=== PATIENT | male | born 1975 | race Caucasian/White ===

== ENCOUNTER 2018-01-22 11:11 | Emergency (ER) | payer MEDICAID ==
[2018-01-22] MEDS: LORAZEPAM 2 MG INJ IV (11:35)
[2018-01-22] MEDS: SOD CHLORIDE 0.9% 1,000 ML IV (11:35)
[2018-01-22 11:42] LABS: ADD MAN DIFF? NO
[2018-01-22] MEDS: OXYMETAZOLINE 0.05% 15 ML NAS SPRAY NASAL (11:49)
[2018-01-22 11:55] LABS: BASOPHIL # 0.1 10^3/ul (0.0-0.1); EOSINOPHILS # 0.1 10^3/ul (0.0-0.5); IMMATURE GRANS #M 0 10^3/ul; IMMATURE GRANS % (M) 0 %; MEAN CORPUSCULAR HGB CONC 33.5 g/dl (32.0-37.0)
[2018-01-22 12:09] LABS: INR 0.93; PROTIME 12.5 Sec (11.9-14.9)
[2018-01-22 12:10] LABS: PARTIAL THROMBOPLASTIN TIME 28.6 Sec (25.0-35.0)
[2018-01-22 12:14] LABS: ALANINE AMINOTRANSFERASE 34 IU/L (13-69); ALBUMIN 4.8 g/dl (3.3-4.9); ALBUMIN/GLOBULIN RATIO 1.54; ALKALINE PHOSPHATASE 126 IU/L (42-121); ANION GAP 20 (8-16); ASPARTATE AMINO TRANSFERASE 72 IU/L (15-46); BILIRUBIN,INDIRECT 0.4 mg/dl (0-1.1); BILIRUBIN,TOTAL 0.4 mg/dl (0.2-1.3); BLOOD UREA NITROGEN 14 mg/dl (7-20); CALCIUM 8.9 mg/dl (8.4-10.2); CARBON DIOXIDE 21 mmol/L (21-31); CHLORIDE 106 mmol/L (97-110); CREATININE 0.68 mg/dl (0.61-1.24); GLUCOSE 123 mg/dl (70-220); POTASSIUM 3.8 mmol/L (3.5-5.1); SODIUM 143 mmol/L (135-144); TOTAL PROTEIN 7.9 g/dl (6.1-8.1)
[2018-01-22 13:36] LABS: WHITE BLOOD COUNT 4.8 10^3/ul (4.8-10.8)
[2018-01-22 13:37] LABS: HEMATOCRIT 27.2 % (42.0-52.0); HEMOGLOBIN 9.1 g/dl (14.0-18.0); RED BLOOD COUNT 3.05 10^6/ul (4.70-6.10)
[2018-01-22 13:38] LABS: MEAN CORPUSCULAR HEMOGLOBIN 29.8 pg (29.0-33.0); MEAN CORPUSCULAR VOLUME 89.2 fl (82.0-101.0); MEAN PLATELET VOLUME 11.9 fl (7.4-10.4); PLATELET COUNT 258 10^3/UL (140-415); RED CELL DISTRIBUTION WIDTH 19.1 % (11.5-14.5)
[2018-01-22 13:39] LABS: BASOPHILS % 1.9 % (0.0-2.0); EOSINOPHILS % 1.5 % (0.0-7.0); LYMPHOCYTES % 31.1 % (15.0-51.0); MONOCYTES % 8.3 % (0.0-11.0); NEUTROPHIL # 2.8 10^3/ul (1.6-7.5)
[2018-01-22 13:40] LABS: LYMPHOCYTES # 1.5 10^3/ul (0.8-2.9); MONOCYTE # 0.4 10^3/ul (0.3-0.9)
== END 2018-01-22 14:06 | disposition home or self-care (01) ==
LOC: E/R 11:11
DX: R04.0 Epistaxis (principal); F10.920 Alcohol use, unspecified with intoxication, uncomplicated; F17.210 Nicotine dependence, cigarettes, uncomplicated
CPT/HCPCS: 80053; 80307; 85025; 85610; 85730; 96361; 96374; 99284-25

== ENCOUNTER 2018-01-23 05:59 | Emergency (ER) | payer MEDICAID | END 2018-01-23 07:53 | disposition home or self-care (01) | LOC: FTE 05:59 | DX: Z09 Encounter for follow-up examination after completed treatment for conditions other than malignant neoplasm (principal) | CPT/HCPCS: 99281; Z7502 ==

== ENCOUNTER 2018-07-09 12:01 | Emergency (ER) | payer MEDICAID ==
[2018-07-09 13:56] LABS: ADD MAN DIFF? NO
[2018-07-09 14:03] LABS: WHITE BLOOD COUNT 3.5 10^3/ul (4.8-10.8)
[2018-07-09 14:03] LABS: BASOPHIL # 0.1 10^3/ul (0.0-0.1); BASOPHILS % 3.7 % (0.0-2.0); EOSINOPHILS # 0.1 10^3/ul (0.0-0.5); EOSINOPHILS % 1.7 % (0.0-7.0); HEMATOCRIT 30.1 % (42.0-52.0); LYMPHOCYTES # 1.1 10^3/ul (0.8-2.9); LYMPHOCYTES % 31.9 % (15.0-51.0); MEAN CORPUSCULAR HEMOGLOBIN 26.6 pg (29.0-33.0); MEAN CORPUSCULAR HGB CONC 33.2 g/dl (32.0-37.0); MEAN CORPUSCULAR VOLUME 80.1 fl (82.0-101.0); MEAN PLATELET VOLUME 9.8 fl (7.4-10.4); MONOCYTE # 0.4 10^3/ul (0.3-0.9); MONOCYTES % 10.2 % (0.0-11.0); NEUTROPHIL # 1.9 10^3/ul (1.6-7.5); NEUTROPHILS % 52.5 % (39.0-77.0); PLATELET COUNT 291 10^3/UL (140-415); RED BLOOD COUNT 3.76 10^6/ul (4.70-6.10); RED CELL DISTRIBUTION WIDTH 19.3 % (11.5-14.5)
[2018-07-09 14:35] LABS: ALANINE AMINOTRANSFERASE 95 IU/L (13-69); ALBUMIN/GLOBULIN RATIO 1.35; ALKALINE PHOSPHATASE 140 IU/L (42-121); ANION GAP 20 (5-13); ASPARTATE AMINO TRANSFERASE 234 IU/L (15-46); BILIRUBIN,INDIRECT 0.2 mg/dl (0-1.1); BILIRUBIN,TOTAL 0.2 mg/dl (0.2-1.3); BLOOD UREA NITROGEN 7 mg/dl (7-20); CALCIUM 9.2 mg/dl (8.4-10.2); CARBON DIOXIDE 26 mmol/L (21-31); CHLORIDE 99 mmol/L (97-110); CREATININE 0.61 mg/dl (0.61-1.24); Estimated GFR > 60 mL/min (>60); GLUCOSE 93 mg/dl (70-220); SODIUM 145 mmol/L (135-144); TOTAL PROTEIN 8.7 g/dl (6.1-8.1)
== END 2018-07-09 15:47 | disposition home or self-care (01) ==
LOC: FTE 12:01
DX: R20.0 Anesthesia of skin (principal); R94.5 Abnormal results of liver function studies
CPT/HCPCS: 80053; 85025; 99283

== ENCOUNTER 2018-07-20 19:17 | Emergency (ER) | payer MEDICAID ==
[2018-07-20] MEDS: ACETAMINOPHEN 325 MG TAB PO (23:17)
[2018-07-20] MEDS: IBUPROFEN 200 MG TAB PO (23:18)
== END 2018-07-21 00:52 | disposition home or self-care (01) ==
LOC: FTE 07-21 00:52
DX: S02.2XXA Fracture of nasal bones, initial encounter for closed fracture (principal); Y04.8XXA Assault by other bodily force, initial encounter
CPT/HCPCS: 70160; 71110; 99284-25

== ENCOUNTER 2018-07-30 18:29 | Inpatient (IN) | payer MEDICAID ==
[2018-07-30] MEDS: LORAZEPAM 2 MG INJ IV (19:51)
[2018-07-30] MEDS: SOD CHLORIDE 0.9% 1,000 ML IV (19:51)
[2018-07-30 19:54] LABS: ADD MAN DIFF? NO
[2018-07-30 19:56] LABS: BASOPHIL # 0.1 10^3/ul (0.0-0.1); BASOPHILS % 1.5 % (0.0-2.0); EOSINOPHILS # 0.2 10^3/ul (0.0-0.5); EOSINOPHILS % 3.1 % (0.0-7.0); HEMATOCRIT 27.1 % (42.0-52.0); HEMOGLOBIN 8.7 g/dl (14.0-18.0); LYMPHOCYTES # 1.2 10^3/ul (0.8-2.9); LYMPHOCYTES % 16.7 % (15.0-51.0); MEAN CORPUSCULAR HEMOGLOBIN 27.6 pg (29.0-33.0); MEAN CORPUSCULAR HGB CONC 32.1 g/dl (32.0-37.0); MEAN PLATELET VOLUME 9.8 fl (7.4-10.4); MONOCYTES % 13.4 % (0.0-11.0); NEUTROPHIL # 4.6 10^3/ul (1.6-7.5); NEUTROPHILS % 64.7 % (39.0-77.0); NUCLEATED RED BLOOD CELLS% 0.3 /100WBC (0.0-0.0); PLATELET COUNT 315 10^3/UL (140-415); RED BLOOD COUNT 3.15 10^6/ul (4.70-6.10)
[2018-07-30 19:56] LABS: WHITE BLOOD COUNT 7.1 10^3/ul (4.8-10.8)
[2018-07-30 20:14] LABS: PROTIME 12.3 Sec (11.9-14.9)
[2018-07-30 20:15] LABS: ALANINE AMINOTRANSFERASE 145 IU/L (13-69); ALBUMIN 4.8 g/dl (3.3-4.9); ALBUMIN/GLOBULIN RATIO 1.45; ALKALINE PHOSPHATASE 162 IU/L (42-121); ANION GAP 9 (5-13); ASPARTATE AMINO TRANSFERASE 331 IU/L (15-46); BILIRUBIN,INDIRECT 0.2 mg/dl (0-1.1); BILIRUBIN,TOTAL 0.2 mg/dl (0.2-1.3); BLOOD UREA NITROGEN 14 mg/dl (7-20); CALCIUM 9.7 mg/dl (8.4-10.2); CARBON DIOXIDE 27 mmol/L (21-31); CHLORIDE 102 mmol/L (97-110); CREATININE 0.66 mg/dl (0.61-1.24); Estimated GFR > 60 mL/min (>60); GLUCOSE 100 mg/dl (70-220); LIPASE 477 U/L (23-300); PARTIAL THROMBOPLASTIN TIME 27.9 Sec (23.0-35.0); SODIUM 138 mmol/L (135-144); TOTAL PROTEIN 8.1 g/dl (6.1-8.1)
[2018-07-30 20:16] LABS: ETHANOL < 10.0 mg/dl (0-0)
[2018-07-30] MEDS: MULTIVITAMINS 10 ML, THIAMINE 100 MG, FOLIC ACID 1 MG, MAGNESIUM SULFATE 2 GM in SOD CH... IV (20:47)
[2018-07-30] MEDS ORDERED: ACETAMINOPHEN 325 MG TAB PO (21:00)
[2018-07-30] MEDS ORDERED: ONDANSETRON 4 MG INJ IV (21:00)
[2018-07-30 21:54] LABS: ADD UMIC NO; UR ASCORBIC ACID NEGATIVE (NEGATIVE); UR BILIRUBIN (Dip) NEGATIVE (NEGATIVE); UR BLOOD (Dip) NEGATIVE (NEGATIVE); UR CLARITY CLEAR (CLEAR); UR COLOR STRAW (YELLOW); UR GLUCOSE (Dip) NEGATIVE (NEGATIVE); UR KETONES (Dip) NEGATIVE (NEGATIVE); UR LEUKOCYTE ESTERASE (Dip) NEGATIVE Leu/ul (NEGATIVE); UR NITRITE (Dip) NEGATIVE (NEGATIVE); UR SPECIFIC GRAVITY (Dip) 1.005 (1.003-1.030); UR TOTAL PROTEIN (Dip) NEGATIVE (NEGATIVE); UR UROBILINOGEN (Dip) NEGATIVE (NEGATIVE)
[2018-07-31] MEDS ORDERED: ACETAMINOPHEN 325 MG TAB PO (02:30)
[2018-07-31] MEDS ORDERED: NACL 0.9% 3 ML SYG IV (02:30)
[2018-07-31] MEDS ORDERED: HYDROCODONE/APAP (5/325) TAB PO (02:30)
[2018-07-31] MEDS ORDERED: traMADol 50 MG TAB PO (02:30)
[2018-07-31] MEDS ORDERED: LORAZEPAM 2 MG INJ IV (02:30)
[2018-07-31 06:12] LABS: ADD MAN DIFF? NO
[2018-07-31 06:23] LABS: RETICULOCYTE RBC 3.24; WHITE BLOOD COUNT 5.8 10^3/ul (4.8-10.8)
[2018-07-31 06:23] LABS: BASOPHIL # 0.1 10^3/ul (0.0-0.1); BASOPHILS % 2.3 % (0.0-2.0); EOSINOPHILS # 0.2 10^3/ul (0.0-0.5); EOSINOPHILS % 3.5 % (0.0-7.0); HEMATOCRIT 28.5 % (42.0-52.0); LYMPHOCYTES % 17.7 % (15.0-51.0); MEAN CORPUSCULAR HEMOGLOBIN 27.4 pg (29.0-33.0); MEAN CORPUSCULAR HGB CONC 31.6 g/dl (32.0-37.0); MEAN CORPUSCULAR VOLUME 86.6 fl (82.0-101.0); MEAN PLATELET VOLUME 10.7 fl (7.4-10.4); MONOCYTE # 0.8 10^3/ul (0.3-0.9); MONOCYTES % 14.3 % (0.0-11.0); NEUTROPHIL # 3.6 10^3/ul (1.6-7.5); NEUTROPHILS % 61.9 % (39.0-77.0); PLATELET COUNT 330 10^3/UL (140-415); RED BLOOD COUNT 3.29 10^6/ul (4.70-6.10); RED CELL DISTRIBUTION WIDTH 18.9 % (11.5-14.5); RETICULOCYTE COUNT # 0.077 X10^6 (0.020-0.110); RETICULOCYTE COUNT % 2.4 % (0.5-1.5)
[2018-07-31 06:34] LABS: IRON 26 ug/dl (35-150)
[2018-07-31 06:43] LABS: % IRON SATURATION 6 % SAT (22-52); TOTAL IRON BINDING CAPACITY 440 ug/dl (241-421)
[2018-07-31 06:49] LABS: ALANINE AMINOTRANSFERASE 133 IU/L (13-69); ALBUMIN 4.5 g/dl (3.3-4.9); ALBUMIN/GLOBULIN RATIO 1.45; ALKALINE PHOSPHATASE 150 IU/L (42-121); ASPARTATE AMINO TRANSFERASE 248 IU/L (15-46); BILIRUBIN,INDIRECT 0.3 mg/dl (0-1.1); BILIRUBIN,TOTAL 0.3 mg/dl (0.2-1.3); BLOOD UREA NITROGEN 10 mg/dl (7-20); CALCIUM 9.4 mg/dl (8.4-10.2); CARBON DIOXIDE 27 mmol/L (21-31); CHLORIDE 106 mmol/L (97-110); CREATININE 0.58 mg/dl (0.61-1.24); Estimated GFR > 60 mL/min (>60); GLUCOSE 93 mg/dl (70-220); MAGNESIUM 2.5 mg/dl (1.7-2.5); POTASSIUM 4.6 mmol/L (3.5-5.1); TOTAL PROTEIN 7.6 g/dl (6.1-8.1)
[2018-07-31 06:54] LABS: ANION GAP 7 (5-13); SODIUM 140 mmol/L (135-144)
[2018-07-31] MEDS: PANTOPRAZOLE (EC) 40 MG TAB PO (09:08)
[2018-07-31] MEDS: SOD CHLORIDE 0.9% 1,000 ML IV ×2 (09:09→14:57)
[2018-07-31] MEDS: MULTIVITAMINS 10 ML, THIAMINE 100 MG, FOLIC ACID 1 MG in SOD CHLORIDE 0.9% 1,000 ML IVPB (09:42)
[2018-07-31] MEDS: CHLORDIAZEPOXIDE 25 MG CAP PO ×3 (09:42→21:05)
[2018-08-01 05:04] LABS: ADD MAN DIFF? NO
[2018-08-01 05:25] LABS: BASOPHIL # 0.1 10^3/ul (0.0-0.1); BASOPHILS % 1.9 % (0.0-2.0); EOSINOPHILS # 0.3 10^3/ul (0.0-0.5); HEMATOCRIT 28.3 % (42.0-52.0); HEMOGLOBIN 8.9 g/dl (14.0-18.0); LYMPHOCYTES # 1.3 10^3/ul (0.8-2.9); LYMPHOCYTES % 18.7 % (15.0-51.0); MEAN CORPUSCULAR HEMOGLOBIN 27.5 pg (29.0-33.0); MEAN CORPUSCULAR HGB CONC 31.4 g/dl (32.0-37.0); MEAN CORPUSCULAR VOLUME 87.3 fl (82.0-101.0); MEAN PLATELET VOLUME 10.8 fl (7.4-10.4); MONOCYTE # 1.1 10^3/ul (0.3-0.9); MONOCYTES % 15.6 % (0.0-11.0); NEUTROPHILS % 59.5 % (39.0-77.0); PLATELET COUNT 355 10^3/UL (140-415); RED BLOOD COUNT 3.24 10^6/ul (4.70-6.10); RED CELL DISTRIBUTION WIDTH 18.9 % (11.5-14.5)
[2018-08-01 05:25] LABS: WHITE BLOOD COUNT 6.7 10^3/ul (4.8-10.8)
[2018-08-01 05:46] LABS: ALANINE AMINOTRANSFERASE 121 IU/L (13-69); ALBUMIN 4.2 g/dl (3.3-4.9); ALBUMIN/GLOBULIN RATIO 1.27; ALKALINE PHOSPHATASE 125 IU/L (42-121); ANION GAP 11 (5-13); ASPARTATE AMINO TRANSFERASE 169 IU/L (15-46); BILIRUBIN,INDIRECT 0.2 mg/dl (0-1.1); BILIRUBIN,TOTAL 0.2 mg/dl (0.2-1.3); BLOOD UREA NITROGEN 10 mg/dl (7-20); CALCIUM 9.4 mg/dl (8.4-10.2); CARBON DIOXIDE 28 mmol/L (21-31); CHLORIDE 103 mmol/L (97-110); CREATININE 0.63 mg/dl (0.61-1.24); Estimated GFR > 60 mL/min (>60); GLUCOSE 97 mg/dl (70-220); LIPASE 408 U/L (23-300); POTASSIUM 3.9 mmol/L (3.5-5.1); SODIUM 142 mmol/L (135-144); TOTAL PROTEIN 7.5 g/dl (6.1-8.1)
[2018-08-01] MEDS: PANTOPRAZOLE (EC) 40 MG TAB PO (06:43)
[2018-08-01] MEDS: SOD CHLORIDE 0.9% 1,000 ML IV (06:58)
[2018-08-01] MEDS: CHLORDIAZEPOXIDE 25 MG CAP PO ×2 (09:33→13:38)
[2018-08-01] MEDS: MULTIVITAMINS 10 ML, THIAMINE 100 MG, FOLIC ACID 1 MG in SOD CHLORIDE 0.9% 1,000 ML IVPB (09:39)
== END 2018-08-01 18:40 | disposition home or self-care (01) | DRG 896 ==
LOC: E/R 18:29 → PP2 20:37
DX: F10.231 Alcohol dependence with withdrawal delirium (principal); K85.90 Acute pancreatitis without necrosis or infection, unspecified; Y90.0 Blood alcohol level of less than 20 mg/100 ml; D63.8 Anemia in other chronic diseases classified elsewhere
CPT/HCPCS: 36415; 76705; 80053; 80307; 81003; 83540; 83690; 83735; 85025; 85045; 85610; 85730; 93005; 96374; 99291-25